=== PATIENT | female | born 1935 | race Caucasian/White ===

== ENCOUNTER → 2017-12-05 | Outpatient (CLI) | payer MEDICARE ==
[~2017-12-05] MED LIST: ADULT LOW DOSE81 MG PO; APAP500 PO; CALCIUM CITRAT250 MG PO; COLACE100 MG PO; DAILY VALUE1 EACH PO; FISH OIL 1,0001 EAC5 PO; IRON325; LIPITOR40 MG PO; LISINOPRIL10 MG PO; LOVENOX; OMEPRAZOLE40 MG PO; PERCOCET 7.5-31 EACH PO; SUPER B COMPLE1 EAC2 PO; VICODIN ES TAB1 EACH PO; VITAMIN D 11000 UNIT PO; ZIAC PO
== END ==
LOC: M.RAD 11-06 07:49
DX: N64.89 Other specified disorders of breast (principal)

== ENCOUNTER → 2018-02-09 | Outpatient (CLI) | payer MEDICARE | LOC: M.RAD 13:32 | DX: M81.0 Age-related osteoporosis without current pathological fracture (principal); M85.89 Other specified disorders of bone density and structure, multiple sites; R31.9 Hematuria, unspecified ==

== ENCOUNTER → 2018-04-29 | Outpatient (CLI) | payer MEDICARE ==
[~2018-04-29] MED LIST changes: +CALCIUM CITRAT200 MG PO; -CALCIUM CITRAT250 MG PO; +COQ-1030 MG PO; -LIPITOR40 MG PO; +LIPITOR80 MG PO; +ULTRAM 50MG TAB50 MG PO; +VOLTAREN GEL 1100 G1 TOP
== END ==
LOC: M.RAD 04-28 10:00
DX: Z12.31 Encounter for screening mammogram for malignant neoplasm of breast (principal)

== ENCOUNTER → 2018-09-01 | Outpatient (CLI) | payer MEDICARE ==
--- NOTE | ~2018-09-01 | PAINCON ---
[address] [address] PAIN MANAGEMENT CONSULTATION Name: YASHIRA FONSECA Room: [facility] MarshallBashir#: [id number] Admission: 09/01/18 Attend Phys: Guanako Garcia MD Discharge: Date of : 33 Report #: [id number] THIS REPORT FOR: //name// CC: Rolanda Garcia DATE OF SERVICE: 09/01/2018 CHIEF COMPLAINT: Left shoulder pain, which bothers me all the time. HISTORY: The patient is an 82-year-old female who has been referred to the pain clinic for evaluation. She has had problems for a number of years with her shoulder. She states that it began in about 2009. Pain is made worse when she does "almost everything." Pain, improved with the use of heat and cold packs. Describes her discomfort as continuous, aching, shooting, throbbing and intense. States that she feels like there is [id number] pain. Rates her pain as a 5/10 today. Rises to the level of an 8/10 at its worse. Over the past year, she has noted a worsening of pain. Has tried physical therapy. Has had steroid injections into the left shoulder without relief. She states that surgery has been recommended. She has been using ibuprofen on a daily basis. ALLERGIES: SULFA. CURRENT MEDICATIONS: Lipitor 80 mg daily, calcium 200 mg total of 600 mg twice daily, vitamin D 1000 units, lisinopril 10 mg, multivitamins, omega 3 fatty acid 1000 mg, CoQ10 of 30 mg capsules, and vitamin D complex. PAST MEDICAL HISTORY: Bilateral cataracts, carpal tunnel syndrome, angioplasty in 1994, irritable bowel syndrome, hypertension, osteoporosis, hyperlipidemia, and coronary artery disease. 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 SOCIAL HISTORY: She is retired, has not worked in the last 5 years. REVIEW OF SYSTEMS: Generally good health, fatigue and weakness, eye disease, cataracts/glaucoma hearing loss, heart trouble, joint pain, joint stiffness, weakness of muscles and joints. LABORATORY DATA: MRI of the shoulder, 03/16/2015, left shoulder pain. 1. There is a small glenohumeral joint effusion. No significant bursal effusion is seen. 2. There is severe degenerative change involving the glenohumeral joint. There were large osteophytes along the inferior [place] [id number] PAIN MANAGEMENT CONSULTATION Name: FONSECAREESEYASHIRA A Room: [facility]#: [id number] Admission: 09/01/18 Attend Phys: Guanako Garcia MD Discharge: Date of : 33 Report #: [id number] humerus. There is reactive marrow change involving the subcortical aspects of the humeral head and the glenoid. There is also some reactive change and cyst formation in the acromioclavicular joint. There are other areas of marrow signal abnormality. 3. There is moderate osteoarthritis involving the acromioclavicular joint. The subacromial space is well maintained. 4. There is severe tendinitis involving the supraspinatus and infraspinatus tendons. No definitive rotator cuff tear seen. 5. There is intrinsic signal abnormality within the proximal biceps tendon suggesting severe tendinitis as well. The biceps tendon is normally positioned in the occipital groove. There is degenerative tearing of the superior labrum. The anterior and posterior labrum are grossly intact. 6. There is soft tissue thickening in the rotator interval suggesting possible synovitis and/or adhesive capsulitis. There are loose bodies within the glenohumeral joint space. The largest is in the axillary pouch measuring up to 8 mm diameter. PAIN CLINIC ASSESSMENT/PQRS: 1. The patient does have arthritic changes involving the left shoulder. The patient is not being treated for rheumatoid arthritis. 2. Height 4 feet 11 inches, weight 124 pounds, BMI is 26.1. 3. Vital signs: Blood pressure 158/75, heart rate 62, respiratory rate 16, room air saturation 97%, and temperature 98.3. 4. Pain intensity 3/10. 5. Fall history: The patient has not fallen in the last 3 months. 6. Blood thinner. The patient is not on a blood thinning medication. 7. Hypertension. The patient is being treated for hypertension. 8. The patient is not being treated for risk assessment tool is low for opioid use. 9. Functional assessment tool. 10. Recreational drug use. The patient denies use of recreational drugs. 11. Tobacco: The patient does not smoke. 12. Alcohol: The patient denies use of alcoholic beverages. PHYSICAL EXAMINATION: GENERAL: The patient is a well-developed white female, appears her stated age. She is alert and oriented x 3. Affect is appropriate. Speech is fluent. NECK: Without adenopathy or JVD. The patient has pain and discomfort involving her left arm. She has limited movement in the left arm. Has perception of [id number] pain and discomfort. HEART: Regular rate. ABDOMEN: Nontender. Bowel sounds present. The patient is without significant scoliosis, kyphosis or lordosis. Upper extremity muscle strength on the left 3/5, right 4+/5. Lower extremity muscle strength 4+/5. IMPRESSION: [facility] [address] [place] [address] PAIN MANAGEMENT CONSULTATION Name: YASHIRA FONSECA [place] Room: [facility] JoannaUzma#: [id number] Admission: 09/01/18 Attend Phys: Guanako Garcia MD Discharge: Date of : 33 Report #: [id number] 1. Left shoulder pain with evidence of severe glenohumeral joint osteoarthritis with history of joint effusion and intraarticular loose bodies and history of severe tendinitis and possible adhesive capsulitis. 2. Bilateral cataracts. 3. Carpal tunnel syndrome. 4. Angioplasty in 1994. 5. Irritable bowel syndrome. 6. Hypertension. 7. Osteoporosis. 8. Hyperlipidemia. 9. Coronary artery disease. RECOMMENDATIONS: We discussed treatment options with the patient. At this juncture, we will try a conservative approach. The patient will be provided diclofenac gel to rub on the affected area. She has also been given a script for tramadol to notice efficacy. We will see how the patient tolerates this medication. If she finds it is an adequate, possibility of hydrocodone will be implemented. We would like to thank you for letting us participate in her care. We hope she continues to improve. By: [id number]. Krishna Garcia MD /nt
== END ==
LOC: M.PC 04:54
DX: M19.012 Primary osteoarthritis, left shoulder (principal); M25.412 Effusion, left shoulder; M75.02 Adhesive capsulitis of left shoulder; I10 Essential (primary) hypertension; M81.0 Age-related osteoporosis without current pathological fracture; E78.5 Hyperlipidemia, unspecified; I25.10 Atherosclerotic heart disease of native coronary artery without angina pectoris; K58.9 Irritable bowel syndrome, unspecified; G56.00 Carpal tunnel syndrome, unspecified upper limb; H26.9 Unspecified cataract; Z98.61 Coronary angioplasty status

== ENCOUNTER → 2021-02-21 | Outpatient (CLI) | payer MEDICARE | LOC: M.RAD 13:26 | PROVIDERS: ATTEND Family Medicine | DX: M85.88 Other specified disorders of bone density and structure, other site (principal); M41.86 Other forms of scoliosis, lumbar region; Z78.0 Asymptomatic menopausal state ==